=== PATIENT | male | born 1990 | race Hispanic/Latino ===

== ENCOUNTER 2021-02-18 21:04 | Emergency (ER) | payer SELFPAY ==
[~2021-02-18] VITALS: Ht 165.1 cm; Wt 113.4 kg
[2021-02-18 21:09] VITALS: BP 161/89
[2021-02-18 21:55] LABS: BASOPHILS % (AUTO) 0.2 % (0.0-5.0); EOSINOPHILS % (AUTO) 0.8 % (0.0-8.0); HEMATOCRIT 43.5 % (42-54); LYMPHOCYTES % (AUTO) 29.3 % (21.0-51.0); MEAN CORPUSCULAR HEMOGLOBIN 29.1 pg (27.0-33.0); MEAN CORPUSCULAR HGB CONC 33.3 g/dL (32.0-36.0); MEAN CORPUSCULAR VOLUME 87.3 fL (79-99); NEUTROPHILS % (AUTO) 61.3 % (40.0-77.0); PLATELET COUNT (AUTO) 235 K/uL (130-400); RED BLOOD CELL COUNT(AUTO) 4.98 MIL/uL (4.50-6.20); RED CELL DISTRIBUTION WIDTH 11.7 % (11.0-15.5); WHITE BLOOD COUNT (AUTO) 10.5 K/uL (4.8-10.8)
[2021-02-18 22:11] LABS: POTASSIUM 3.7 mmol/L (3.5-5.1)
[2021-02-18 22:15] LABS: BILIRUBIN,TOTAL 0.5 mg/dL (0.2-1.0); CRP QUANTITATIVE 11.9 mg/L (0.00-9.0); TOTAL PROTEIN, SERUM 7.8 g/dL (6.0-8.3)
[2021-02-18 22:55] LABS: APPEARANCE,URINE Clear (CLEAR); BILIRUBIN,URINE Negative (NEGATIVE); COLOR,URINE Yellow (YELLOW); GLUCOSE, URINE (UA) TRACE mg/dL (NEGATIVE); KETONES,URINE Negative (NEGATIVE); LEUKOCYTE ESTERASE ,URINE Negative (NEGATIVE); NITRATE,URINE Negative (NEGATIVE); OCCULT BLOOD,URINE Negative (NEGATIVE); PROTEIN,URINE Trace mg/dL (NEGATIVE)
[2021-02-18] MEDS ORDERED: HYDROCODONE/ACETAMINOPHEN 10/325 MG TAB PO ONE (23:00)
[2021-02-18 23:10] LABS: BACTERIA,URINE None Seen /HPF (None Seen)
[2021-02-18 23:11] LABS: SQUAMOUS EPITHELIAL CELL,UR Rare /HPF (0-2); WBC,URINE 0-1 /HPF (0-1)
[2021-02-18 23:12] LABS: CALCIUM OXALATE CRYSTALS,UR Rare /LPF (None Seen)
[2021-02-18 23:13] LABS: MUCUS,URINE Moderate LPF (None Seen)
[2021-02-18] MEDS ORDERED: ACET-2247 PO (23:22)
== END 2021-02-18 23:46 | disposition home or self-care (01) ==
LOC: EDH 21:04
DX: N50.89 Other specified disorders of the male genital organs (principal); R73.9 Hyperglycemia, unspecified; E66.9 Obesity, unspecified; Z68.41 Body mass index [BMI] 40.0-44.9, adult
CPT/HCPCS: 36415; 71045; 76870; 80053; 81001; 84703; 85025; 86140

== ENCOUNTER 2023-01-01 16:23 | Emergency (ER) | payer BC ==
[~2023-01-01] VITALS: Ht 165.1 cm; Wt 103.4 kg
[~2023-01-01 16:23] MED LIST: ACET-2247 PO
[2023-01-01 16:38] VITALS: RESP 20
[2023-01-01] MEDS ORDERED: LABETALOL 20MG SYG IV ONE ×2 (17:28→17:30)
[2023-01-01 17:31] LABS: MEAN CORPUSCULAR HEMOGLOBIN 28.4 pg (27.0-33.0); MEAN CORPUSCULAR HGB CONC 35.2 g/dL (32.0-36.0); MEAN CORPUSCULAR VOLUME 80.6 fL (79-99); RED BLOOD CELL COUNT(AUTO) 5.46 MIL/uL (4.50-6.20); RED CELL DISTRIBUTION WIDTH 11.6 % (11.0-15.5); WHITE BLOOD COUNT (AUTO) 11.4 K/uL (4.8-10.8)
[2023-01-01 17:33] LABS: APPEARANCE,URINE CLEAR (CLEAR); BILIRUBIN,URINE NEGATIVE (NEGATIVE); COLOR,URINE LIGHT-YELLOW (YELLOW); GLUCOSE, URINE (UA) NEGATIVE (NEGATIVE); KETONES,URINE NEGATIVE (NEGATIVE); LEUKOCYTE ESTERASE ,URINE NEGATIVE Leu/uL (NEGATIVE); NITRATE,URINE NEGATIVE (NEGATIVE); OCCULT BLOOD,URINE NEGATIVE (NEGATIVE); PROTEIN,URINE 70 mg/dL (NEGATIVE); UROBILINOGEN,URINE 0.2 mg/dL (0.2-1.0)
[2023-01-01] MEDS ORDERED: LORAZEPAM 2 MG/ML 1 ML VIAL ONE (17:37)
[2023-01-01] MEDS ORDERED: NITROGLYCERIN 1GM OINT 1 INCH/1GM TD ONE ×2 (17:37→18:00)
[2023-01-01 17:40] LABS: ADD UA MICROSCOPIC YES
[2023-01-01 17:43] LABS: MUCUS,URINE RARE LPF (None Seen); RBC,URINE 0-1 /HPF (0-1); SQUAMOUS EPITHELIAL CELL,UR RARE /HPF (0-2)
[2023-01-01 17:50] LABS: CREATININE 1.3 mg/dL (0.5-1.5)
[2023-01-01] MEDS ORDERED: LORAZEPAM 2 MG/ML 1 ML VIAL IVP ONE (18:00)
[2023-01-01] MEDS ORDERED: HYDRALAZINE 20MG/ML VIAL IV ONE (18:30)
[2023-01-01] MEDS ORDERED: POTASSIUM BICARB/CIT AC 25 MEQ TABLET.EFF PO ONE (18:30)
[2023-01-01 18:48] VITALS: BP 164/93; PULSE 91; O2SAT 98
[2023-01-01 18:51] LABS: MAGNESIUM 2.3 mg/dL (1.80-2.40); THYROID STIMULATING HORMONE 1.11 uIU/mL (0.36-3.74)
[2023-01-01] MEDS ORDERED: HYDR-3420 PO (19:26)
== END 2023-01-01 19:41 | disposition home or self-care (01) ==
LOC: EDH 16:23
DX: I16.9 Hypertensive crisis, unspecified (principal); F14.90 Cocaine use, unspecified, uncomplicated; R59.0 Localized enlarged lymph nodes; E66.9 Obesity, unspecified; Z90.79 Acquired absence of other genital organ(s); Z85.47 Personal history of malignant neoplasm of testis
CPT/HCPCS: 99284; 74176; 96374; 96375; 84443; 83735; 84484; 80048; 83690; 85027; 81001; 36415; 93005; J2060